=== PATIENT | female | born 1985 | race Asian ===

== ENCOUNTER → 2018-08-01 | Outpatient (CLI) | payer MEDICAID | LOC: FIMAGING 13:42 | PROVIDERS: ATTEND Obstetrics & Gynecology | DX: O09.291 Supervision of pregnancy with other poor reproductive or obstetric history, first trimester (principal); O99.341 Other mental disorders complicating pregnancy, first trimester; Z3A.13 13 weeks gestation of pregnancy ==

== ENCOUNTER → 2018-10-08 | Outpatient (CLI) | payer MEDICAID | LOC: FIMAGING 08:07 | PROVIDERS: ATTEND Obstetrics & Gynecology | DX: Z34.92 Encounter for supervision of normal pregnancy, unspecified, second trimester (principal); F31.9 Bipolar disorder, unspecified; Z3A.22 22 weeks gestation of pregnancy ==